=== PATIENT | male | born 1995 | race Caucasian/White ===

== ENCOUNTER 2019-04-05 13:23 | Emergency (ER) | payer OTHER ==
[~2019-04-05] VITALS: Ht 167.6 cm; Wt 102.1 kg
[~2019-04-05 13:23] MED LIST: FLONASE ALLERG9.9 ML NAS; PREDNISONE10 MG PO
[2019-04-05] MEDS ORDERED: NORCO 5-325 TA1 EACH PO (15:47)
== END 2019-04-05 16:00 | disposition home or self-care (01) ==
LOC: ED 13:23
DX: S92.111A Displaced fracture of neck of right talus, initial encounter for closed fracture (principal); Z79.899 Other long term (current) drug therapy; Z89.411 Acquired absence of right great toe; Z89.421 Acquired absence of other right toe(s); X50.1XXA Overexertion from prolonged static or awkward postures, initial encounter; Y93.01 Activity, walking, marching and hiking; Y92.89 Other specified places as the place of occurrence of the external cause; Y99.8 Other external cause status

== ENCOUNTER 2021-04-23 12:12 | Emergency (ER) | payer OTHER ==
[~2021-04-23] VITALS: Wt 99.8 kg
[~2021-04-23 12:12] MED LIST changes: +NORCO 5-325 TA1 EACH PO
[2021-04-23] MEDS ORDERED: CORTISPORIN SUS10 ML OT (15:33)
== END 2021-04-23 16:00 | disposition home or self-care (01) ==
LOC: ED 12:12
DX: H66.92 Otitis media, unspecified, left ear (principal); H60.92 Unspecified otitis externa, left ear; H61.23 Impacted cerumen, bilateral